=== PATIENT | female | born 1995 | race Caucasian/White ===

== ENCOUNTER 2024-02-14 19:39 | Emergency (ER) | payer OTHER, SELFPAY ==
[2024-02-14 19:39] VITALS: BP 109/72; PULSE 75; RESP 16; TEMP 36.6; O2SAT 99; BMI 33.6
--- NOTE | 2024-02-14 19:42 | HMH.EDGENADL ---
Discharge Plan Disposition Patient Disposition: Home, Self-Care Prescriptions Prescriptions: No Action lamotrigine 150 mg tablet 150 mg PO DAILY Patient Comments: TAKE ONE TABLET BY MOUTH ONCE DAILY. metformin 500 mg tablet 500 mg PO BID Patient Comments: TAKE ONE TABLET BY MOUTH TWICE DAILY WITH FOOD ropinirole 1 mg tablet 1 mg PO DAILY Patient Comments: TAKE ONE TABLET BY MOUTH ONCE DAILY risperidone 2 mg tablet 2 mg PO BID Patient Comments: TAKE ONE TABLET BY MOUTH TWICE DAILY FOR MOOD. trazodone 100 mg tablet 100 mg PO BID Patient Comments: TAKE ONE TABLET BY MOUTH TWICE DAILY buspirone 10 mg tablet 10 mg PO BID Patient Comments: TAKE ONE TABLET BY MOUTH TWICE DAILY albuterol sulfate [Ventolin HFA] 90 mcg/actuation HFA aerosol inhaler 2 puff INHALATION Q4-6H Patient Comments: INHALE TWO PUFFS BY MOUTH EVERY FOUR TO SIX HOURS NEEDED loratadine 10 mg tablet 10 mg PO DAILY Patient Comments: TAKE ONE TABLET BY MOUTH ONCE DAILY prazosin 2 mg capsule 2 mg PO HS Patient Comments: TAKE 1 CAPSULE BY MOUTH EVERY DAY AT BEDTIME FOR NIGHTMARES atomoxetine 40 mg capsule 40 mg PO DAILY Patient Comments: TAKE ONE CAPSULE BY MOUTH ONCE DAILY FOR IMPAIRED FOCUS/CONCENTRATION/ATTENTION. duloxetine 60 mg capsule,delayed release(DR/EC) 60 mg PO DAILY Patient Comments: TAKE ONE CAPSULE BY MOUTH ONCE DAILY FOR DEPRESSION/ANXIETY. levetiracetam 1,000 mg tablet 1,500 mg PO BID Patient Comments: TAKE 1&1/2 TABLETS BY MOUTH TWICE DAILY guaifenesin 600 mg tablet extended release 12hr 600 mg PO BID Patient Comments: TAKE ONE TABLET BY MOUTH EVERY TWELVE HOURS Referrals Follow up/Referrals: Erma Nguyễn MD [Staff Physician] - See instructions (History of seizures, breakthrough seizure) Lowell Waters APRN [Primary Care Provider] - See instructions Activity Restrictions/Add. Instructions Additional Instructions/Restrictions: Please follow-up with your neurologist soon. You are given Keppra here. Please continue taking your medications as prescribed. If you have another seizure please come back to the emergency department for further management Clinical Impressions Clinical Impression: Seizure Instructions Patient Instructions: DI for Seizure Disorder -- Adult, DI for Nausea -- Adult Print Language Print Language: Vietnamese Discharge ED Provider: Lorenzo Simon Adult [facility] General Chief complaint: Nausea/Vomiting/Diarrhea Stated complaint: feeling like she might have a seizure Time Seen by Provider: 02/14/24 19:42 History of Present Illness HPI narrative: Patient is a 28-year-old female past medical history of seizures, anxiety, depression, autism, asthma presenting for seizure-like activity. According to EMS patient said that she has had cough congestion and fever over the last couple of days and felt like she was can have a seizure and that is why she called EMS. In route she was hemodynamically stable alert and oriented per EMS but upon arrival here she had a seizure-like activity lasting about 30 seconds. She has not remember the episode and is unable to provide further history at this time. at bedside said the patient has a history of pseudoseizures, epilepsy and absence seizure's. She has not missed any of her medication and has been about 1 month since her last seizure. They just moved here and she has not been able to follow-up with a neurologist but has one. Prior to her not feeling well she was acting normal but said that sometimes when she starts acting like this he knows she is about to have a seizure and that is the reason that he called EMS. Related Data Home Medications ?Medication ?Instructions ?Recorded ?Confirmed albuterol sulfate 90 mcg/actuation 2 puff inhalation Q4-6H 02/14/24 02/14/24 aerosol inhaler (Ventolin HFA) atomoxetine 40 mg capsule 40 mg PO DAILY 02/14/24 02/14/24 buspirone 10 mg tablet 10 mg PO BID 02/14/24 02/14/24 duloxetine 60 mg capsule,delayed 60 mg PO DAILY 02/14/24 02/14/24 release guaifenesin 600 mg tablet, 600 mg PO BID 02/14/24 02/14/24 extended release 12 hr lamotrigine 150 mg tablet 150 mg PO DAILY 02/14/24 02/14/24 levetiracetam 1,000 mg tablet 1,500 mg PO BID 02/14/24 02/14/24 loratadine 10 mg tablet 10 mg PO DAILY 02/14/24 02/14/24 metformin 500 mg tablet 500 mg PO BID 02/14/24 02/14/24 prazosin 2 mg capsule 2 mg PO HS 02/14/24 02/14/24 risperidone 2 mg tablet 2 mg PO BID 02/14/24 02/14/24 ropinirole 1 mg tablet 1 mg PO DAILY 02/14/24 02/14/24 trazodone 100 mg tablet 100 mg PO BID 02/14/24 02/14/24 Allergies Allergy/AdvReac Type Severity Reaction Status Date / Time shellfish derived Allergy Severe Swelling Verified 02/14/24 20:15 of Lip/Tongue/Throat banana Allergy Intermediate Rash Verified 02/14/24 20:15 [facility] Disclaimer: The information contained in this section may have been updated after the patient was seen, as this information can be updated by other users. Medical History (Updated 02/14/24 @ 22:44 by Lorenzo Simon MD) Diabetes Nightmare disorder Seasonal allergies Concentration deficit Mood disorder Uterine cancer Seizure Surgical History (Updated 02/14/24 @ 20:16 by Brianne Umanzor RN) H/O total hysterectomy Social History Smoking Status: Current every day smoker alcohol intake: never current occupational status: other Travel in the last 8 weeks: None ROS Obtained: Yes All systems reviewed & no additional complaints except as documented Physical Exam General General appearance: alert and in no apparent distress Eye Eye exam: Present normal appearance ENT ENT exam: Present normal exam Chest Chest inspection: Present symmetric chest wall rise Respiratory Respiratory exam: Present normal lung sounds bilaterally; Absent respiratory distress Cardiovascular Cardiovascular exam: Present regular rate Abdominal Exam Abdominal exam: Present soft; Absent tenderness, guarding or rebound Extremities Exam Extremities exam: Present full ROM; Absent tenderness Neurological Exam Neurological exam: Present alert, CN II-XII intact, normal gait and other (Mildly confused); Absent motor sensory deficit Psychiatric Psychiatric exam: Present normal affect Skin Skin exam: Present warm and normal color Medical Decision Making Medical Records Screening: Per USPSTF and CDC recommendations, given the prevalence of disease in our region, it is our hospital?s policy to screen for HIV and viral Hepatitis for all patients aged 18 and over and those with ongoing risk factors. [place] Inquiry Pt receiving controlled substance: No Vital Signs: 02/14/24 19:39 02/14/24 20:56 02/14/24 21:00 Temperature 97.9 F Temperature Source Oral Pulse Rate 76 Pulse Rate [Right] 75 Respiratory Rate 16 16 19 Blood Pressure 103/75 L 100/61 L Blood Pressure [Right Arm] 109/72 L Blood Pressure Mean 84 74 Blood Pressure Mean [Right Arm] 84 Blood Pressure Source Blood Pressure Source [Right Arm] Automatic Cuff 02 Sat by Pulse Oximetry 99 96 Oxygen Delivery Method Room Air 02/14/24 21:30 02/14/24 22:00 02/14/24 22:48 Temperature 97.8 F Temperature Source Oral Pulse Rate 64 61 72 Pulse Rate [Right] Respiratory Rate 16 16 16 Blood Pressure 106/61 L 111/72 100/71 L Blood Pressure [Right Arm] Blood Pressure Mean 67 Blood Pressure Mean [Right Arm] Blood Pressure Source Automatic Cuff Blood Pressure Source [Right Arm] 02 Sat by Pulse Oximetry 97 97 Oxygen Delivery Method Room Air Lab Data Lab Results 02/14/24 19:49: Urine Opiates Screen Negative, Urine Methadone Screen Negative, Ur Barbituates Screen Negative, Ur Phencyclidine Scrn Negative, Ur Amphetamines Screen Negative, U Benzodiazepines Scrn Negative, Urine Cocaine Screen Negative, U Marijuana (THC) Screen Negative 02/14/24 19:50: WBC 8.5, RBC 4.49, Hgb 13.0, Hct 37.3, MCV 83.1, MCH 29.0, MCHC 34.9, RDW 12.3, Plt Count 269, MPV 9.2, Neut % (Auto) 57.3, Lymph % (Auto) 33.1, Aiken % (Auto) 6.9, Eos % (Auto) 1.9, Baso % (Auto) 0.2, Neut # (Auto) 4.8, Lymph # (Auto) 2.8, Aiken # (Auto) 0.6, Eos # (Auto) 0.2, Baso # (Auto) 0.0, PT 11.1, INR 0.99, Sodium 138, Potassium 3.9, Chloride 103, Carbon Dioxide 26, Anion Gap 12.9, BUN 13, Creatinine 0.80, Estimated Creat Clear 145, Estimated GFR 87, Est GFR ( Amer) 105, Glucose 98, Calcium 8.9, Magnesium 1.7, Total Bilirubin 0.2, AST 25, ALT 18, Alkaline Phosphatase 53, Total Creatine Kinase 61, Total Protein 7.3, Albumin 4.4, Globulin 2.9, Albumin/Globulin Ratio 1.5, Lipase 62, TSH 2.60, Free T4 1.02, Serum HCG, Qual Negative 02/14/24 21:06: VBG pH 7.47 H, VBG pCO2 27.6 L, VBG pO2 180.9 H, VBG HCO3 19.4 L, VBG Total CO2 20.3 L, VBG O2 Saturation 99.1 H, VBG Base Excess -4.3 L, VBG Lactic Acid 1.2 02/14/24 19:50 02/14/24 19:50 Orders (Tests/Meds): ED MEDICATIONS Discontinued Medications Generic Name Dose Route Start Last Admin Trade Name Lily PRN Reason Stop Dose Admin Acetaminophen 1,000 mg 02/14/24 22:27 02/14/24 22:32 Acetaminophen 500mg Tab PO 02/14/24 22:28 1,000 mg ONCE ONE Administration Lactated Ringer's 1,000 mls @ 999 mls/hr 02/14/24 19:59 02/14/24 20:35 Lactated Ringer's 1000 Ml Bag IV 02/14/24 20:59 999 mls/hr .Q1H1M ONE Administration Levetiracetam 2,000 mg/ Sodium 120 mls @ 240 mls/hr 02/14/24 19:59 02/14/24 20:35 Chloride IV 02/14/24 20:00 240 mls/hr ONCE ONE Administration Ondansetron HCl 4 mg 02/14/24 21:57 02/14/24 22:32 Ondansetron 4mg/2ml Vial IV 02/14/24 21:58 4 mg ONCE ONE Administration ORDERS Category Date Time Status CT head/brain wo con Stat Cat Scan 02/14/24 20:01 Completed Calcium, Ionized Stat Lab 02/14/24 19:50 Received Complete Blood Count Auto Diff Stat Lab 02/14/24 19:50 Completed Comprehensive Metabolic Panel Stat Lab 02/14/24 19:50 Completed Creatine Kinase Stat Lab 02/14/24 19:50 Completed Drug Screen,Urine Stat Lab 02/14/24 19:49 Completed Free T4 (Free Thyroxine) Stat Lab 02/14/24 19:50 Completed HCG Qualitative, Serum Stat Lab 02/14/24 19:50 Completed Lipase Stat Lab 02/14/24 19:50 Completed Magnesium Stat Lab 02/14/24 19:50 Completed Prothrombin Time INR Stat Lab 02/14/24 19:50 Completed Thyroid Stimulating Hormone Stat Lab 02/14/24 19:50 Completed Venous Blood Gas Stat RT 02/14/24 21:06 Completed ECG Request Stat Y 02/14/24 19:54 Ordered Medical Decision Narrative: In summary, this 28-year-old Fe presents to the emergency department today with seizure. On initial evaluation patient is patient is mildly confused and had a seizure in the hallway. The entire event lasted about 30 seconds and patient was mildly confused after this episode. She had no shaking but was stiff of her bilateral upper and lower extremities and was not responding to painful stimuli, she had no cyanosis during this episode. Differential diagnosis includes but is not limited to breakthrough seizure, electrolyte abnormality. Based on these concerns, I ordered labs, imaging. ECG personally interpreted demonstrates normal sinus rhythm, no ST elevations, intervals within normal limit. Patient received Keppra for treatment. Labs personally reviewed demonstrate negative drug screen, respiratory alkalosis. CT imaging personally interpreted demonstrate no large intracranial hemorrhage or stroke. On reassessment sitting up, at baseline mental status in no acute distress. Patient said that she has multiple types of seizures and she was unsure of what type of seizure she had today, she is not had any other symptoms prior to the last couple days and has been acting normal up until she had a seizure. Patient was given Keppra and a referral to a neurologist here but she has a another neurologist that she has follow-up with as well. I gave patient seizure precautions, return precautions, all questions answered, patient discharged. Critical Care Critical Care Time Critical Care Time: No
--- NOTE | 2024-02-14 19:54 | ECG_ITS ---
APPROVED REPORT Exam: Resting ECG HR:77 bpm ECG Measurements Heart Rate 77 AXES HI 130 P 57 QRSd 82 QRS 67 QT 367 T 27 QTc 399 Conclusion SINUS RHYTHM LOW QRS VOLTAGE IN PRECORDIAL LEADS [QRS DEFLECTION < 1.0 mV IN CHEST LEADS] BORDERLINE ECG UNCONFIRMED REPORT Electronically signed by : LILY FAUST, 02/15/2024 06:49:00
--- NOTE | 2024-02-14 20:00 | PC.NURSE ---
collected urine sent to lab.
--- NOTE | 2024-02-14 20:01 | CT_ITS ---
PROCEDURE INFORMATION: Exam: CT Head Without Contrast Exam date and time: 02/14/2024 8:33 PM Age: 28 years old Clinical indication: Altered mental status/memory loss TECHNIQUE: Imaging protocol: Computed tomography of the head without contrast. Total images: 536 Radiation optimization: All CT scans at this facility use at least one of these dose optimization techniques: automated exposure control; mA and/or kV adjustment per patient size (includes targeted exams where dose is matched to clinical indication); or iterative reconstruction. COMPARISON: No relevant prior studies available. FINDINGS: Brain: Normal. No hemorrhage. Unremarkable white matter. No mass effect. The barnett-white interface is maintained. Cerebral ventricles: No ventriculomegaly. Paranasal sinuses: Completely opacified right maxillary sinus. Mucosal thickening posterior sphenoid sinus. Mastoid air cells: Visualized mastoid air cells are well aerated. Bones: Unremarkable. No acute fracture. Soft tissues: Unremarkable. IMPRESSION: 1. No acute intracranial process. 2. Paranasal sinus disease.
[2024-02-14 20:11] LABS: Basophils % 0.2 % (0.1-2.0); Eosinophils # 0.2 K/mm3 (0.0-0.4); Eosinophils % 1.9 % (0.1-12.0); Hematocrit 37.3 % (37.0-47.0); Lymphocytes # 2.8 K/mm3 (0.7-4.5); Lymphocytes % 33.1 % (10-50); Mean Corpuscular HGB Conc 34.9 g/dL (31.8-35.4); Mean Corpuscular Volume 83.1 fl (81-99); Mean Platelet Volume 9.2 fl (7.4-10.4); Monocytes # 0.6 K/mm3 (0.1-1.0); Monocytes % 6.9 % (1.7-9.3); Neutrophils # 4.8 K/mm3 (1.8-7.8); Neutrophils % 57.3 % (37.0-80.0); Platelet Count 269 K/mm3 (142-424); Red Blood Count 4.49 M/mm3 (4.20-5.40); Red Cell Distribution Width 12.3 % (11.5-17.5); White Blood Count 8.5 K/mm3 (4.8-10.8)
[2024-02-14 20:16] LABS: Albumin Level 4.4 g/dl (3.5-5.0); Chloride 103 mmol/L (98-107); Sodium 138 mmol/L (136-145)
[2024-02-14 20:17] LABS: Potassium 3.9 mmoL/L (3.5-5.1)
[2024-02-14 20:18] LABS: Creatine Kinase 61 U/L (30-135)
[2024-02-14 20:19] LABS: Alanine Aminotransferase 18 U/L (12-78); Albumin/Globulin Ratio 1.5 (1.1-1.8); Alkaline Phosphatase 53 U/L (38-126); Anion Gap 12.9 mEq/L (5-15); Aspartate Amino Transferase 25 U/L (14-36); Bilirubin,Total 0.2 mg/dl (0.2-1.3); Blood Urea Nitrogen 13 mg/dl (7-17); Carbon Dioxide 26 mmol/L (22.0-30.0); Creatinine Clearance Estimated 145 mL/min (50-200); Estimated Glomerular Filt Rate 87 ml/min (>60); GFR (African American) 105 ML/MIN (>60); Globulin 2.9 g/dL (1.3-3.2); Lipase 62 U/L (23-300); Magnesium 1.7 mg/dl (1.6-2.3); Total Protein,Serum 7.3 g/dl (6.3-8.2)
[2024-02-14 20:20] LABS: Calcium 8.9 mg/dl (8.4-10.2); Glucose 98 mg/dl (74-100)
[2024-02-14 20:22] LABS: HCG Qualitative, Serum Negative (Negative)
[2024-02-14 20:33] LABS: Amphetamine/Metha Screen,Urine Negative ng/ml (<1000); Barbiturates Screen,Urine Negative ng/ml (<200)
[2024-02-14 20:34] LABS: Benzodiazepines Screen,Urine Negative ng/ml (<200)
[2024-02-14 20:35] LABS: Cannabinoid Screen,Urine Negative ng/ml (<50); Cocaine Screen,Urine Negative ng/ml (<300)
[2024-02-14] MEDS: LACTATED RINGERS 1000ML 1,000 ML 999 ML IV (20:35)
[2024-02-14] MEDS: levETIRAcetam 2,000 MG in 0.9 % SODIUM CHLORIDE 100 ML 240 MG IV (20:35)
[2024-02-14 20:36] LABS: INR 0.99 (0.9-1.1); Prothrombin Time 11.1 seconds (10.1-12.5)
[2024-02-14 20:36] LABS: Methadone Screen,Urine Negative ng/ml (<300)
[2024-02-14 20:37] LABS: Opiate Screen,Urine Negative ng/ml (<300); Phencyclidine Screen,Urine Negative ng/ml (<25)
[2024-02-14 20:38] LABS: Free T4 (Free Thyroxine) 1.02 ng/dl (0.78-2.19)
[2024-02-14 20:56] VITALS: BP 103/75; PULSE 76; RESP 16; O2SAT 96
[2024-02-14 21:00] VITALS: BP 100/61; RESP 19
[2024-02-14 21:12] LABS: Lactate Venous 1.2 mmol/L (0.4-2.0); VBG Base Excess -4.3 mmol/L (-2.4-2.3); VBG HCO3 19.4 mmol/L (23-30); VBG Oxygen Saturation 99.1 % (50-70); VBG PCO2 27.6 mmol/L (35-51); VBG PH 7.47 mmol/L (7.31-7.41); VBG PO2 180.9 mmol/L (28-40); VBG Total CO2 20.3 mmol/L (23-27)
--- NOTE | 2024-02-14 21:13 | PC.NURSE ---
assisted pt to restroom.
[2024-02-14 21:30] VITALS: BP 106/61; PULSE 64; RESP 16; O2SAT 97
[2024-02-14 22:00] VITALS: BP 111/72; PULSE 61; RESP 16; O2SAT 97
--- NOTE | 2024-02-14 22:25 | PC.NURSE ---
patient assisted to bathroom and back to room
[2024-02-14] MEDS: ACETAMINOPHEN 500MG TAB 1000 MG PO (22:32)
[2024-02-14] MEDS: ONDANSETRON 4MG/2ML VIAL 4 MG IV (22:32)
[2024-02-14 22:48] VITALS: BP 100/71; PULSE 72; RESP 16; TEMP 36.6; O2SAT 99
== END 2024-02-14 23:07 | disposition home or self-care (01) ==
PROVIDERS: Emergency Provider Student in an Organized Health Care Education/Training Program; PCP Registered Nurse
DX: R56.9 Unspecified convulsions (principal); R05.9 Cough, unspecified; R09.81 Nasal congestion; R50.9 Fever, unspecified
CPT/HCPCS: 70450; 80053; 80307; 82330; 82550; 82803; 83690; 83735; 84439; 84443; 84703; 85025; 85610; 93005; 96361; 96374; 96375; 99284; J1953; J2405; J7120

== ENCOUNTER 2024-05-09 16:54 | Emergency (ER) | payer OTHER, SELFPAY ==
[2024-05-09 17:09] VITALS: BP 109/71; PULSE 96; RESP 20; TEMP 36.6; O2SAT 96; BMI 31.8
[2024-05-09 17:17] LABS: Microscopic, Urine URINE MICROSCOPIC (MICROSCOPIC)
[2024-05-09 17:18] LABS: Appearance,Urine CLEAR (Clear); Bilirubin,Urine Negative (Negative); Blood, Urine Negative (Negative); Glucose,Urine (UA) Negative (Negative); Ketones,Urine Negative (Negative); Leukocyte Esterase,Urine Negative (Negative); Nitrate,Urine Negative (Negative); PH,Urine 5.5 (5.0-8.5); Protein,Urine Negative (Negative); Urobilinogen,Urine 0.2 EU/dl (0.2)
[2024-05-09 17:20] LABS: Urine Pregnancy, HCG Qual. Negative (Negative)
[2024-05-09 17:22] LABS: Color,Urine Straw (Yellow)
[2024-05-09 17:31] LABS: Specific Gravity, Urine 1.006 (1.005-1.030)
[2024-05-09 17:32] LABS: Bacteria,Urine 1+ /lpf; RBC,Urine Occasional #/hpf (0-3); Sperm,Urine OCC /lpf
--- NOTE | 2024-05-09 17:42 | CT_ITS ---
PROCEDURE INFORMATION: Exam: CT Abdomen And Pelvis With Contrast Exam date and time: 05/09/2024 7:22 PM Age: 28 years old Clinical indication: Pain; Other: Pelvic pressure; Prior surgery; Surgery date: <1 month; Surgery type: Hysterectomy, ; additional info: Previous, cancer status post hysterectomy, pressure TECHNIQUE: Imaging protocol: Computed tomography of the abdomen and pelvis with contrast. Total images: 326 Radiation optimization: All CT scans at this facility use at least one of these dose optimization techniques: automated exposure control; mA and/or kV adjustment per patient size (includes targeted exams where dose is matched to clinical indication); or iterative reconstruction. Contrast material: ISOVUE; Contrast volume: 75 ml; Contrast route: IV; COMPARISON: No relevant prior studies available. FINDINGS: Lungs: Lung bases are clear. Heart: Normal heart size. Liver: Focal fatty liver infiltration near the falciform ligament. Otherwise, unremarkable liver. Gallbladder and biliary ducts: Partially contracted gallbladder with suspected noncalcified gallstones. No biliary ductal dilatation. No secondary signs of acute cholecystitis. Pancreas: Normal. No ductal dilation. Spleen: Normal. No splenomegaly. Adrenal glands: Normal. No mass. Kidneys and ureters: No hydronephrosis, nephrolithiasis, or renal mass. No ureteral stones. Stomach and bowel: Unremarkable stomach and duodenum. No ileus or bowel obstruction. Unremarkable small bowel and terminal ileum. Unremarkable colon and rectum. Appendix: Normal appendix. Intraperitoneal space: No ascites. No free air. Vasculature: Nonaneurysmal abdominal aorta. Major abdominal vessels enhance appropriately. Lymph nodes: Small benign-appearing bilateral inguinal lymph nodes. Urinary bladder: mild bladder wall thickening. Reproductive: Recent hysterectomy. Small quantity pelvic fluid. No pelvic abscess. Left ovary contains the remnants of a recently collapsed cyst. No adnexal mass. Bones/joints: Unremarkable. No acute fracture. Soft tissues: Tiny fat containing periumbilical hernia. IMPRESSION: 1. Left ovary contains the sequela of a recently collapsed cyst. 2. Small quantity free pelvic fluid secondary to above. 3. No pelvic abscess or adnexal mass. 4. Recent hysterectomy. 5. Mild bladder wall thickening may reflect cystitis. 6. Normal appendix.
--- NOTE | 2024-05-09 17:43 | ED_ITS ---
Discharge Plan Disposition Patient Disposition: Home, Self-Care Chief Complaint: Urogenital-Female Prescriptions Prescriptions: No Action lamotrigine 150 mg tablet 150 mg PO DAILY Patient Comments: TAKE ONE TABLET BY MOUTH ONCE DAILY. metformin 500 mg tablet 500 mg PO BID Patient Comments: TAKE ONE TABLET BY MOUTH TWICE DAILY WITH FOOD ropinirole 1 mg tablet 1 mg PO DAILY Patient Comments: TAKE ONE TABLET BY MOUTH ONCE DAILY risperidone 2 mg tablet 2 mg PO BID Patient Comments: TAKE ONE TABLET BY MOUTH TWICE DAILY FOR MOOD. trazodone 100 mg tablet 100 mg PO BID Patient Comments: TAKE ONE TABLET BY MOUTH TWICE DAILY buspirone 10 mg tablet 10 mg PO BID Patient Comments: TAKE ONE TABLET BY MOUTH TWICE DAILY albuterol sulfate [Ventolin HFA] 90 mcg/actuation HFA aerosol inhaler 2 puff INHALATION Q4-6H Patient Comments: INHALE TWO PUFFS BY MOUTH EVERY FOUR TO SIX HOURS NEEDED loratadine 10 mg tablet 10 mg PO DAILY Patient Comments: TAKE ONE TABLET BY MOUTH ONCE DAILY prazosin 2 mg capsule 2 mg PO HS Patient Comments: TAKE 1 CAPSULE BY MOUTH EVERY DAY AT BEDTIME FOR NIGHTMARES atomoxetine 40 mg capsule 40 mg PO DAILY Patient Comments: TAKE ONE CAPSULE BY MOUTH ONCE DAILY FOR IMPAIRED FOCUS/CONCENTRATION/ATTENTION. duloxetine 60 mg capsule,delayed release(DR/EC) 60 mg PO DAILY Patient Comments: TAKE ONE CAPSULE BY MOUTH ONCE DAILY FOR DEPRESSION/ANXIETY. levetiracetam 1,000 mg tablet 1,500 mg PO BID Patient Comments: TAKE 1&1/2 TABLETS BY MOUTH TWICE DAILY guaifenesin 600 mg tablet extended release 12hr 600 mg PO BID Patient Comments: TAKE ONE TABLET BY MOUTH EVERY TWELVE HOURS Referrals Follow up/Referrals: Lowell Waters APRN [Primary Care Provider] - See instructions Activity Restrictions/Add. Instructions Additional Instructions/Restrictions: At this time it was felt you are safe to be discharged home. If new or worsening symptoms please do not hesitate to return the emergency department. For pain please take Tylenol and ibuprofen. Clinical Impressions Clinical Impression: Ovarian cyst Instructions Patient Instructions: DI for Urinary Tract Infection (UTI), DI for Urinary Tract Infection in Children Print Language Print Language: Macedonian Discharge ED Provider: Glynn Rider General Adult HPI General Chief complaint: Urogenital-Female Stated complaint: painful urination Time Seen by Provider: 05/09/24 17:07 Mode of Arrival: Ambulatory Source of Information: Patient Description of Symptoms (Recalled from ER Triage Doc. by RN): Patient presents to ED with pain during urination for 2 days. Patient denies any blood in the urine. Patient denies any back pain. History of Present Illness HPI narrative: Patient is a 28-year-old female with past medical history of uterine cancer status post total hysterectomy bilateral salpingectomy who presents emergency department for lower abdominal pressure. Onset was acute over the last 2 days. Pressure occurs when she pees. Does not occur at rest. No vaginal bleeding or discharge. she has had a history of bladder inflammation before. Only suprapubic pressure, no lower quadrant pain no epigastric pain. She has had itchy breasts with that does occur. She does have a 2-year-old son at home however her has been more than normally is. Please note that above description of symptoms, in this electronic medical record under categorization of recalled from ER triage doctor by RN are reflective of an initial nursing assessment, however, is not reflective of my full history and physical exam that was personally taken and clarified. Consequentially, this preceding description of symptoms, which may include the patient's categorized chief complaint in the EMR, do not reflect my personal clinical impression, and the ultimate description of history of present illness and patient stated complaints should be deferred to this section of the note. Unless stated otherwise or congruent with this section of the note, additional signs, symptoms, or incongruence should be interpreted as inaccurate with my clinical impression. Related Data Home Medications ?Medication ?Instructions ?Recorded ?Confirmed albuterol sulfate 90 mcg/actuation 2 puff inhalation Q4-6H 02/14/24 02/14/24 aerosol inhaler (Ventolin HFA) atomoxetine 40 mg capsule 40 mg PO DAILY 02/14/24 02/14/24 buspirone 10 mg tablet 10 mg PO BID 02/14/24 02/14/24 duloxetine 60 mg capsule,delayed 60 mg PO DAILY 02/14/24 02/14/24 release guaifenesin 600 mg tablet, 600 mg PO BID 02/14/24 02/14/24 extended release 12 hr lamotrigine 150 mg tablet 150 mg PO DAILY 02/14/24 02/14/24 levetiracetam 1,000 mg tablet 1,500 mg PO BID 02/14/24 02/14/24 loratadine 10 mg tablet 10 mg PO DAILY 02/14/24 02/14/24 metformin 500 mg tablet 500 mg PO BID 02/14/24 02/14/24 prazosin 2 mg capsule 2 mg PO HS 02/14/24 02/14/24 risperidone 2 mg tablet 2 mg PO BID 02/14/24 02/14/24 ropinirole 1 mg tablet 1 mg PO DAILY 02/14/24 02/14/24 trazodone 100 mg tablet 100 mg PO BID 02/14/24 02/14/24 Allergies Allergy/AdvReac Type Severity Reaction Status Date / Time shellfish derived Allergy Severe Swelling Verified 02/14/24 20:15 of Lip/Tongue/Throat banana Allergy Intermediate Rash Verified 02/14/24 20:15 [facility] Disclaimer: The information contained in this section may have been updated after the patient was seen, as this information can be updated by other users. Medical History (Updated 05/09/24 @ 20:34 by Glynn Rider MD) Diabetes Nightmare disorder Seasonal allergies Concentration deficit Mood disorder Uterine cancer Seizure Surgical History H/O total hysterectomy Social History (Updated 05/09/24 @ 17:14 by Erlinda Calderon RN) Smoking Status: Current every day smoker alcohol intake: never current occupational status: other Travel in the last 8 weeks: None ROS Obtained: Yes Systems reviewed as appropriate & no additional complaints except as documented Physical Exam General General appearance: alert and in no apparent distress Head Head exam: atraumatic and normocephalic Eye Eye exam: Present PERRL ENT ENT exam: Present mucous membranes moist Neck Neck exam: Present normal inspection Chest Chest inspection: Present normal inspection and symmetric chest wall rise Respiratory Respiratory exam: Absent respiratory distress Cardiovascular Cardiovascular exam: Present regular rate and normal rhythm Abdominal Exam Abdominal exam: Present soft and tenderness (Mild, suprapubic); Absent guarding or rebound Extremities Exam Extremities exam: Present normal inspection Neurological Exam Neurological exam: Present alert Psychiatric Psychiatric exam: Present normal affect Skin Skin exam: Present warm and dry Medical Decision Making Medical Records Screening: Per USPSTF and CDC recommendations, given the prevalence of disease in our region, it is our hospital?s policy to screen for HIV and viral Hepatitis for all patients aged 18 and over and those with ongoing risk factors. [place] Inquiry Pt receiving controlled substance: No Vital Signs: 05/09/24 17:09 Temperature 97.8 F Temperature Source Oral Pulse Rate [Right Brachial] 96 H Respiratory Rate 20 Blood Pressure [Right Arm] 109/71 L Blood Pressure Mean [Right Arm] 83 Blood Pressure Source [Right Arm] Automatic Cuff Blood Pressure Position [Right Arm] Supine 02 Sat by Pulse Oximetry 96 Oxygen Delivery Method Room Air Lab Data Lab Results 05/09/24 17:02: Urine Color Straw, Urine Appearance Clear, Urine pH 5.5, Ur Specific [place] 1.006, Urine Protein Negative, Urine Glucose (UA) Negative, Urine Ketones Negative, Urine Blood Negative, Urine Nitrate Negative, Urine Bilirubin Negative, Urine Urobilinogen 0.2, Ur Leukocyte Esterase Negative, Urine RBC Occasional, Urine WBC 3-5, Ur Squamous Epith Cells 5-10, Urine Bacteria 1+, Urine Sperm Occ, Urine HCG, Qual Negative 05/09/24 17:55: WBC 6.4, RBC 4.60, Hgb 13.7, Hct 39.9, MCV 86.7, MCH 29.8, MCHC 34.3, RDW 11.8, Plt Count 272, MPV 9.8, Neut % (Auto) 52.3, Lymph % (Auto) 40.2, [place] % (Auto) 6.0, Eos % (Auto) 1.1, Baso % (Auto) 0.2, Neut # (Auto) 3.3, Lymph # (Auto) 2.6, [place] # (Auto) 0.4, Eos # (Auto) 0.1, Baso # (Auto) 0.0, Sodium 139, Potassium 3.6, Chloride 108 H, Carbon Dioxide 24, Anion Gap 10.6, BUN 11, Creatinine 0.70, Estimated Creat Clear 157, Estimated GFR 101, Est GFR ( Amer) 122, Glucose 113 H, Calcium 9.2, Total Bilirubin 0.4, AST 38 H, ALT 42, Alkaline Phosphatase 45, Total Protein 7.1, Albumin 4.5, Globulin 2.6, Albumin/Globulin Ratio 1.7, Lipase 48 05/09/24 17:55 05/09/24 17:55 Orders (Tests/Meds): ED MEDICATIONS Discontinued Medications Generic Name Dose Route Start Last Admin Trade Name Freq PRN Reason Stop Dose Admin Acetaminophen 1,000 mg 03/30/25 17:42 05/09/24 17:57 Acetaminophen 500mg Tab PO 05/09/24 17:43 1,000 mg ONCE ONE Administration Iopamidol 75 ml 05/09/24 19:23 05/09/24 19:24 Iopamidol-370 (76%);100ml Bottle IV 05/09/24 19:24 75 ml ONCE ONE Administration Ketorolac Tromethamine 30 mg 05/09/24 17:42 05/09/24 17:57 Ketorolac 30mg/Ml Vial IV 05/09/24 17:43 30 mg ONCE ONE Administration Sodium Chloride 10 ml 05/09/24 19:23 05/09/24 19:24 Sodium Chloride 0.9% 10ml Syr (Rad Only) IV 05/09/24 19:24 10 ml ONCE ONE Administration ORDERS Category Date Time Status CT abdomen pelvis w con Stat Cat Scan 05/09/24 17:42 Completed CBC w/Auto Diff [Complete Blood Count Auto Diff] Stat Lab 05/09/24 17:55 Completed CMP [Comprehensive Metabolic Panel] Stat Lab 05/09/24 17:55 Completed Lipase Stat Lab 05/09/24 17:55 Completed UA [Urinalysis and Microscopic] Stat Lab 05/09/24 17:02 Completed Urine , HCG Qual. Stat Lab 05/09/24 17:02 Completed Medical Decision Narrative: In summary patient is a 28-year-old female past medical history described above presents emergency department for evaluation of suprapubic pain. Patient is hemodynamically stable nontoxic-appearing upon arrival, afebrile. Differential includes recurrence of cancer, cystitis, among others. Workup will be conducted with hematologic labs, CT abdomen pelvis IV contrast, urinalysis. Initial inventions include multimodal pain control. Initial hematologic labs reviewed by me no significant leukocytosis or anemia, no critical electrolyte abnormality or RAMESH, normal lipase. Urinalysis interpreted by me and not consistent with infection. CT of the abdomen pelvis left ovary contains sequela of recently collapsed cyst with a trace amount of pelvic free fluid. No pelvic abscess or adnexal mass. Mild bladder thickening with a normal appendix. Given this and that the cyst is not large have no concern for torsion. On repeat evaluation patient was well-appearing and is appropriate for outpatient management at this time was discharged with return precautions. Critical Care Critical Care Time Critical Care Time: No
[2024-05-09] MEDS: ACETAMINOPHEN 500MG TAB 1000 MG PO (17:57)
[2024-05-09] MEDS: KETOROLAC 30MG/ML VIAL 30 MG IV (17:57)
[2024-05-09 18:39] LABS: Basophils % 0.2 % (0.1-2.0); Eosinophils # 0.1 K/mm3 (0.0-0.4); Eosinophils % 1.1 % (0.1-12.0); Hematocrit 39.9 % (37.0-47.0); Hemoglobin 13.7 g/dL (12.2-16.2); Lymphocytes # 2.6 K/mm3 (0.7-4.5); Lymphocytes % 40.2 % (10-50); Mean Corpuscular HGB Conc 34.3 g/dL (31.8-35.4); Mean Corpuscular Hemoglobin 29.8 pg (27.0-31.2); Mean Corpuscular Volume 86.7 fl (81-99); Mean Platelet Volume 9.8 fl (7.4-10.4); Monocytes # 0.4 K/mm3 (0.1-1.0); Neutrophils # 3.3 K/mm3 (1.8-7.8); Neutrophils % 52.3 % (37.0-80.0); Platelet Count 272 K/mm3 (142-424); Red Cell Distribution Width 11.8 % (11.5-17.5); White Blood Count 6.4 K/mm3 (4.8-10.8)
[2024-05-09 18:42] LABS: Albumin Level 4.5 g/dl (3.5-5.0); Chloride 108 mmol/L (98-107); Potassium 3.6 mmoL/L (3.5-5.1); Sodium 139 mmol/L (136-145)
[2024-05-09 18:44] LABS: Alanine Aminotransferase 42 U/L (12-78); Aspartate Amino Transferase 38 U/L (14-36); Blood Urea Nitrogen 11 mg/dl (7-17); Creatinine Clearance Estimated 157 mL/min (50-200); Estimated Glomerular Filt Rate 101 ml/min (>60); GFR (African American) 122 ML/MIN (>60)
[2024-05-09 18:45] LABS: Albumin/Globulin Ratio 1.7 (1.1-1.8); Alkaline Phosphatase 45 U/L (38-126); Anion Gap 10.6 mEq/L (5-15); Bilirubin,Total 0.4 mg/dl (0.2-1.3); Calcium 9.2 mg/dl (8.4-10.2); Carbon Dioxide 24 mmol/L (22.0-30.0); Globulin 2.6 g/dL (1.3-3.2); Glucose 113 mg/dl (74-100); Lipase 48 U/L (23-300); Total Protein,Serum 7.1 g/dl (6.3-8.2)
[2024-05-09] MEDS: SODIUM CHLORIDE 0.9% 10ML SYR (RAD ONLY) 10 ML IV (19:24)
[2024-05-09] MEDS: IOPAMIDOL-370 (76%);100ML BOTTLE 75 ML IV (19:24)
[2024-05-09 20:40] VITALS: BP 100/49; PULSE 76; RESP 17; TEMP 36.9; O2SAT 99
== END 2024-05-09 20:41 | disposition home or self-care (01) ==
PROVIDERS: Emergency Provider Emergency Medicine; PCP Registered Nurse
DX: N83.209 Unspecified ovarian cyst, unspecified side (principal); R30.9 Painful micturition, unspecified; R10.2 Pelvic and perineal pain; Z72.0 Tobacco use
CPT/HCPCS: 74177; 80053; 81001; 81025; 83690; 85025; 96374; 99285; J1885; Q9967